=== PATIENT | female | born 1980 | race African-American/Black ===

== ENCOUNTER → 2016-05-21 | Outpatient (CLI) | payer OTHER ==
[~2016-05-21] VITALS: Ht 7.6 cm; Wt 73.9 kg
[~2016-05-21] MED LIST: AMBIEN 10 MG TA10 MG PO; CYMBALTA30 MG PO; CYMBALTA60 MG PO; IBUPROFEN 200200 M1 PO; LIORESAL 10 MG10 MG PO; NORVASC10 MG PO; OXYCODONE HCL15 MG PO; OXYCONTIN15 MG PO; XANAX1 MG PO; ZANAFLEX4 MG PO; ZOLOFT50 MG PO
--- NOTE | ~2016-05-21 | HPC ---
[facility] [place] [address] PAIN MANAGEMENT CONSULTATION Name: STEPHANIE LOUIS Room #: REG ANAT Ari#: [id number] Admission: 05/21/16 Attend Phys: Mohamud Farley DO Discharge: Date of : 82 Report #: [id number] THIS REPORT FOR: //name// CC: Nicki Farley The patient is a 35-year-old female seen in consultation at request of Dr. John for assistance with management of axial back pain. The patient notes she had a labor epidural for partuition about 3 years ago (04/10/2014). About 3 weeks subsequent, she developed axial back pain, primarily left radiating up into the shoulder, exacerbated with standing, walking, rotating. She has tried physical therapy, range of motion exercises, ibuprofen. She was using oxycodone somewhat self prescribed (states she was getting it from friends) for pain 2 or 3 times a week. Has been started on hydrocodone 10/325 using about 2 tablets a day recently. She describes continuous, steady, constant, throbbing, stabbing pain that she rates anywhere from 7-10 on a 0-10 visual analog scale. She denies radicular symptoms. There are no myelopathic symptoms. No bowel or bladder continence changes or lower extremity weakness. REVIEW OF SYSTEMS: Complete review of systems attached to chart was gone over with the patient. She is single. Does not smoke or drink alcohol to excess. She has had 4 C-sections 2002, 2004, 2012 and 2013. She is treated for hypertension with amlodipine and lisinopril. Has some chronic depression for which she has recently started sertraline 100 mg. She prior had been on another serotonin reuptake inhibiting agent. She uses Ambien 10 mg 3 times a week. Xanax for anxiety 1-2 mg up to 3 times a week as well. 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 Pain impact score averages about 7-1/2 for activity, mood, sleep, and enjoyment of life. It does not affect "relationships with other people" or ability to walk. PHYSICAL EXAMINATION: Reveals a 5 feet 3 inch, 163 pound female, BMI is approximately 28.9 kilograms per meter squared. Blood pressure is 151/96, pulse 84, respirations 16, room air oxygen saturation 97%. Cranial nerves 2-12 are grossly intact. Pupils are equal and reactive to light and accommodation. Extraocular muscles are intact. There is no nystagmus, lateral gaze deviation. Cervical range of motion is full. Thyroid is modestly enlarged, no nodules are noted. Upper extremity strength is preserved. Heart is regular and rhythmical with a trace murmur. Lungs are clear. Abdomen shows a moderately endomorphic build, rises from chair easily. Gait is tandem. Lower extremity strength is preserved. Flexion is good 90 degrees. Lower extremity reflexes, patellar and Achilles are symmetric. Has diffuse tenderness in the left back area, primarily at about T4-L3. There is palpable spasm in the paravertebral muscles. Side bending and rotation do exacerbate pain. Again, no radicular symptoms, straight [address] [address] PAIN MANAGEMENT CONSULTATION Name: STEPHANIE LOUIS Room #: ZAC Chapman#: [id number] Admission: 05/21/16 Attend Phys: Mohamud Farley DO Discharge: Date of : 82 Report #: [id number] leg raise is negative. Skin integument is intact. There are no diagnostic studies available for evaluation at this time. ASSESSMENT: Myofascial pain, possible component of thoracolumbar spondylosis in a 35-year-old female concerned for opiate habituation, tolerance and using nonprescribed schedule 2 opiates. Long discussion with the patient today about therapeutic options. I pointed out that opiates are actually contraindicated for myofascial-type pain. CDC recommends muscle relaxant and combination antidepressant agents (a selective serotonin reuptake and norepinephrine reuptake inhibitor). Currently, the patient is taking sertraline. We will recommend that she start Cymbalta 30 mg at bedtime for 6 days while taking 1/2 for sertraline tablet (50 mg). On day #7, I will have her discontinue sertraline and start 60 mg Cymbalta. I will start tizanidine 4 mg 1 tablet t.i.d. for spasm. Noted the patient can take half tablet in the morning, half tablet in the afternoon if this causes untoward sedation and then take one tablet after work and at bedtime, total of 3 tablets for the day. I would be happy to see her back in 4 weeks to evaluate efficacy of interventional therapies. We talked about increasing range of motion, continuing exercise and stretching. Again, opiate analgesics are contraindicated for myofascial-type pain and concern for this use in a 35-year-old female who has been using prescription pain medications somewhat self prescribed. Thank you for allowing me to participate in the patient's care. I will keep you abreast of her progress. <ELECTRONICALLY SIGNED> By: Mohamud Farley DO 05/23/16 [id number] Mohamud Farley, DO /nt
[2016-05-21 09:09] VITALS: BP 159/118
== END | disposition home or self-care (01) ==
LOC: PAIN 04-17 06:31
DX: M79.1 Myalgia (principal); M47.895 Other spondylosis, thoracolumbar region; F11.20 Opioid dependence, uncomplicated; F32.9 Major depressive disorder, single episode, unspecified; I10 Essential (primary) hypertension

== ENCOUNTER 2019-01-23 19:18 | Emergency (ER) | payer OTHER ==
[~2019-01-23] VITALS: Ht 160 cm; Wt 68.0 kg
[2019-01-23] MEDS ORDERED: DOXYCYCLINE 10100 MG PO (19:37)
[2019-01-23] MEDS ORDERED: FLAGYL500 M1 PO (19:37)
[2019-01-23 20:23] VITALS: BP 163/98
== END 2019-01-23 20:45 | disposition home or self-care (01) ==
LOC: ER 19:18
DX: R10.31 Right lower quadrant pain (principal); R10.32 Left lower quadrant pain; I10 Essential (primary) hypertension; Z76.0 Encounter for issue of repeat prescription; Z98.890 Other specified postprocedural states